=== PATIENT | female | born 1980 | race Caucasian/White ===

== ENCOUNTER 2021-10-08 21:18 | Emergency (ER) | payer BC ==
[2021-10-09] MEDS ORDERED: TORADOL 10 MG T10 MG PO (02:10)
[2021-10-09] MEDS ORDERED: DECADRON4 MG PO (02:10)
== END 2021-10-09 02:19 | disposition home or self-care (01) ==
LOC: ER1 21:18
DX: M54.42 Lumbago with sciatica, left side (principal); I10 Essential (primary) hypertension; Z90.49 Acquired absence of other specified parts of digestive tract; Z90.89 Acquired absence of other organs; Z88.5 Allergy status to narcotic agent; Z88.2 Allergy status to sulfonamides
CPT/HCPCS: 96372; 99283; J1100; J1885